=== PATIENT | female | born 1940 | race Caucasian/White ===

== ENCOUNTER 2018-01-18 16:48 | Inpatient (IN) | payer OTHER ==
[2018-01-18] VITALS (8 sets, daily range): BP systolic 110–203; BP diastolic 80–120
[~2018-01-18] VITALS: Ht 152.4 cm; Wt 99.8 kg
--- NOTE | ~2018-01-18 | 2DMMODE ---
[facility] [address] [email or web address] [address] 2 D/M-MODE ECHOCARDIOGRAM Name: AMBROSE NAVARRO Room #: 247-P ADM IN M.R.#: [id number] Admission: 01/18/18 Attend Phys: Jevon Wheat MD Discharge: Date of : 40 Date of Service: 01/19/18 1019 Report #: [id number] THIS REPORT FOR: //name// APPROVED REPORT Study performed: 01/19/2018 08:30:55 EXAM: Comprehensive 2D, Doppler, and color-flow Echocardiogram Patient Location: ICU Room #: [facility] Status: routine BSA: 1.94 HR: 89 bpm BP: 177/93 mmHg Rhythm: NSR/Arrhythmia Other Information Study Quality: Fair Technically limited study due to morbid obesity and little cooperation. Indications Hypertension. Hx: DM, HTN 2D Dimensions RVDd: 25.76 mm LVEF(%): 54.29 (>50%) IVSd: 10.10 (7-11mm) LVOT Diam: 21.60 (18-24mm) LVDd: 42.89 mm PWd: 10.69 (7-11mm) Ascending Ao: 30.26 (22-36mm) LVDs: 30.94 (25-40mm) Aortic Root: 27.07 mm Hill's LVEF: 54.29 % Volumes Left Atrial Volume (Systole) Single Plane 4CH: 61.14 mL Single Plane 2CH: 40.73 mL LA ESV Index: 29.00 mL/m2 Aortic Valve AoV Peak Justin.: 1.61 m/s AO Peak Gr.: 10.37 mmHg LVOT Max P.70 mmHg LVOT Max V: 1.19 m/s BALJINDER Vmax: 2.72 cm2 Mitral Valve [facility] [address] [place] [address] 2 D/M-MODE ECHOCARDIOGRAM Name: AMBROSE NAVARRO VERONICA Room #: 247-P [facility] IN M.R.#: [id number] Admission: 01/18/18 Attend Phys: Jevon Wheat MD Discharge: Date of : 40 Date of Service: 01/19/18 1019 Report #: [id number] E/A Ratio: 30.5 MV E Max Justin.: 0.61 m/s MV A Justin.: 0.02 m/s IVRT: 106.11 ms Pulmonary Valve PV Peak Justin.: 0.95 m/s PV Peak Gr.: 3.61 mmHg Pulmonary Vein P Vein S: 0.76 m/s P Vein D: 0.33 m/s P Vein S/D Ratio: 2.30 Tricuspid Valve RAP Estimate: 5.00 mmHg Left Ventricle The left ventricle is normal size. There is normal LV segmental wall motion. Mild basal septal hypertrophy is present. Left ventricular systolic function is normal. LVEF is 60%. Mild diastolic dysfunction is present (impaired relaxation pattern). Right Ventricle The right ventricle is normal size. The right ventricular systolic function is normal. Atria The left atrium size is normal. The right atrium size is normal. Aortic Valve The aortic valve is not well visualized but appears grossly normal. No aortic regurgitation is present. There is no aortic valvular stenosis. Mitral Valve Mild mitral annular calcification. There is no mitral valve regurgitation noted. Tricuspid Valve The tricuspid valve is normal in structure. There is no tricuspid valve regurgitation noted. Unable to assess PA pressure. Pulmonic Valve Pulmonic valve is not well visualized. [facility] [address] [place] [address] 2 D/M-MODE ECHOCARDIOGRAM Name: AMBROSE NAVARRO Room #: 247-P [facility] IN M.R.#: [id number] Admission: 01/18/18 Attend Phys: Jevon Wheat MD Discharge: Date of : 40 Date of Service: 01/19/18 1019 Report #: [id number] Great Vessels The aortic root is normal in size. The ascending aorta is normal in size. IVC is normal in size and collapses >50% with inspiration. Pericardium There is no pericardial effusion. <Conclusion> Left ventricular systolic function is normal. There is normal LV segmental wall motion. LVEF 60%. Mild diastolic dysfunction The aortic valve is not well visualized but appears grossly normal. No aortic regurgitation or stenosis Mild mitral annular calcification. No mitral insufficiency Pulmonary artery pressure could not be reliably ascertained There is no pericardial effusion. <ELECTRONICALLY SIGNED> By: Zohaib Aj MD, FACC 01/19/18 1019 1019 1019 Zohaib Aj MD, FAC /INF
--- NOTE | ~2018-01-18 | O ---
[facility] [place] [address] OPERATIVE REPORT Name: AMBROSE ANVARRO Room #: 455-P ADM IN M.R.#: [id number] Admission: 01/18/18 Attend Phys: Jevon Wheat MD Discharge: Date of : 40 Report #: [id number] THIS REPORT FOR: //name// CC: ADDY physician/PCP Jevon Wheat DATE OF SERVICE: 01/19/2018 SURGEON: Celestino Weber MD EQUAL OPPORTUNITY REPRESENTATIVE: PENNY Torres PREOPERATIVE DIAGNOSES: 1. Acute appendicitis. 2. Morbid obesity. 3. Diabetes mellitus. 4. Hypertension. 5. Chronic pain. POSTOPERATIVE DIAGNOSES: 1. Acute appendicitis. 2. Incarcerated incisional ventral hernias times 2. 3. Intraabdominal adhesions. 4. Morbid obesity. 5. Diabetes mellitus. 6. Hypertension. 7. Chronic pain. PROCEDURE: 1. Laparoscopic appendectomy. 2. Laparoscopic lysis of adhesions. 3. Laparoscopic repair of incarcerated incisional ventral hernias times 2. ANESTHESIA: General endotracheal anesthesia and local anesthetic. ESTIMATED BLOOD LOSS: 5 mL. SPECIMEN: Appendix. COMPLICATIONS: None appreciated. INDICATIONS FOR PROCEDURE: This is a 77-year-old female patient with history of diabetes mellitus, hypertension, chronic pain syndrome and fibromyalgia, who was directly admitted from [facility] with abdominal pain, nausea, and multiple episodes of emesis as well as diarrhea starting the day prior to her admission. She denies fever or chills. She had significant leukocytosis with a [facility] [address] [place] [address] OPERATIVE REPORT Name: AMBROSE NAVARRO Room #: 455-P ADM IN M.R.#: [id number] Admission: 01/18/18 Attend Phys: Jevon Wheat MD Discharge: Date of : 40 Report #: [id number] white blood cell count of 22.[address] evidence for acute appendicitis (dilated appendix with mucosal enhancement and periappendiceal stranding). The patient presents now for laparoscopic appendectomy. OPERATIVE FINDINGS: Upon entrance into the abdominal cavity, intra-abdominal adhesions were seen in the lower abdomen. She did have an incisional ventral hernia at the umbilicus that I traversed and this was closed primarily; however, an additional incisional ventral hernia was seen in the upper epigastrium associated with her previous laparoscopic cholecystectomy. Neither hernia was incarcerated with bowel, but rather omentum and preperitoneal fat. The appendix itself was inflamed and dilated with no evidence for abscess or perforation. The base of the appendix was able to be stapled off without difficulty and the staple line was secure thereafter. Upon running the bowel back, there was no evidence for a Meckel's diverticulum. At the conclusion of the operation, sponge, needle, and instrument counts were correct. DESCRIPTION OF PROCEDURE IN DETAIL: After the risks, benefits, and expectations of the operation were discussed in detail with the patient, informed consent was obtained. The patient was identified in the preoperative holding area. She has been given scheduled IV antibiotics. She was taken to the operating room and she was placed in the supine position. SCDs were placed on the patient's bilateral lower extremities and pneumatic compression was initiated. The patient was then given IV sedation and she was intubated without incident. A time-out was performed to identify the correct patient and procedure. Local anesthetic was infiltrated into the skin and subcutaneous tissue supraumbilically where a curvilinear incision was made with a #15 blade scalpel. Dissection was carried down and the incisional ventral hernia was identified. The 11-mm port was able to be placed easily through the defect. A pneumoperitoneum was achieved with insufflation of carbon dioxide to 15 mmHg. A 30-degree angled laparoscope was inserted. The left lower quadrant 5-mm port was placed under direct visualization after local anesthetic was infiltrated into the skin and subcutaneous tissue and appropriately sized incisions were made. An additional 5-mm port was placed in the lower midline using the same technique. The intraabdominal adhesions were then carefully taken down off of the abdominal wall with the ultrasonic dissector. The patient was rotated to her left with the right side up. The base of the appendix was able to be identified. A window was made in the mesoappendix adjacent to the base of the appendix. The blue load endoscopic AARON stapler was then used to staple and divide the appendix at its base. The mesoappendix was divided with the ultrasound dissector with good hemostasis. The appendix and mesoappendix were then placed in an Endopouch and removed through the supraumbilical port site. On survey of the abdominal cavity, an incisional ventral hernia incarcerated with omentum and preperitoneal fat was seen in the upper abdomen associated previous laparoscopic cholecystectomy. The defect was skeletonized. A separate small stab incision was made and an 0 PDS suture was used to close the fascial [facility] [address] [place] [address] OPERATIVE REPORT Name: AMBROSE NAVARRO Room #: 455-P [facility] IN Ren[place]#: [id number] Admission: 01/18/18 Attend Phys: Jevon Wheat MD Discharge: Date of : 40 Report #: [id number] defect. The suture was tied under direct visualization. A [id number] 0 PDS suture was also placed at the umbilicus where the port had been placed. The staple line was secure and no other pathology was seen upon running the bowel backwards. At the conclusion of the operation, sponge, needle, and instrument counts were correct. The sutures were tied under direct visualization to ensure no incorporation of intra-abdominal content. The abdominal cavity was desufflated and the remaining ports were removed. Interrupted subcuticular 4-0 Monocryl sutures and Dermabond were used to close the skin incisions. The patient tolerated the procedure well. She was awakened, extubated, and taken to recovery room in stable condition with no apparent intraoperative complications. <ELECTRONICALLY SIGNED> By: Celestino Weber MD, FACS 01/20/18 1146 [id number] Celestino Weber MD, FACS /nt
[2018-01-18 19:44] LABS: ALBUMIN 3.8 g/dL (3.4-5.0); DIRECT BILIRUBIN 0.1 mg/dL (<0.1-0.3); TOTAL BILIRUBIN 0.5 mg/dL (<0.1-1.0); TOTAL PROTEIN 8.4 g/dL (6.4-8.2)
[2018-01-18 22:07] LABS: URINE BILIRUBIN NEGATIVE (Negative); URINE BLOOD 1+ (Negative); URINE CLARITY CLEAR; URINE COLOR YELLOW; URINE GLUCOSE-RANDOM* 2+ (Negative); URINE KETONES 3+ (Negative); URINE LEUKOCYTES-REFLEX NEGATIVE (Negative); URINE NITRITE-REFLEX NEGATIVE (Negative); URINE PROTEIN (DIPSTICK) 2+ (Negative); URINE SPECIFIC GRAVITY 1.025 (1.005-1.035); URINE UROBILINOGEN 0.2 E.U./dl (0.2-1.0)
[2018-01-18 22:16] LABS: BACTERIA-REFLEX None Seen /HPF (None Seen); CASTS None Seen /LPF (None Seen); CRYSTALS None Seen /LPF (None Seen); MUCUS None Seen strn/LPF (None Seen); SQUAMOUS 0-3 Few /LPF (0-3); URINE RBC None Seen /HPF (0-2); URINE WBC-REFLEX None Seen /HPF (0-5)
[2018-01-19] VITALS (25 sets, daily range): BP systolic 110–213; BP diastolic 58–116
[2018-01-19 02:03] LABS: HEMATOCRIT 38.8 % (37.0-47.0); HEMOGLOBIN 13.3 gm/dL (12.0-15.0); MCH 28.8 pg (26.0-34.0); MCHC 34.2 g/dL (28.0-37.0); MCV 84.2 fL (80.0-100.0); RBC 4.6 mil/uL (4.20-5.00); RDW 13.1 % (10.5-14.5); WBC 22.2 thou/uL (4.0-11.0)
[2018-01-19 02:06] LABS: CALCIUM 9.3 mg/dL (8.5-10.1); CREATININE 0.8 mg/dL (0.6-1.0)
[2018-01-20] VITALS: BP 123/69
[2018-01-20 03:28] VITALS: BP 165/78
[2018-01-20 04:40] LABS: HEMATOCRIT 34.3 % (37.0-47.0); HEMOGLOBIN 11.4 gm/dL (12.0-15.0); MCH 28.5 pg (26.0-34.0); MCHC 33.2 g/dL (28.0-37.0); RBC 3.99 mil/uL (4.20-5.00); RDW 13.3 % (10.5-14.5); WBC 20.8 thou/uL (4.0-11.0)
[2018-01-20 04:42] LABS: PLATELET COUNT 386 thou/uL (150-400)
[2018-01-20 04:54] LABS: CALCIUM 7.5 mg/dL (8.5-10.1); CREATININE 0.9 mg/dL (0.6-1.0); MAGNESIUM 1.1 mg/dL (1.8-2.4); POTASSIUM 3.6 mmol/L (3.5-5.1)
[2018-01-20 05:45] LABS: ABSOLUTE NEUTROPHILS 17.7 thou/uL (1.4-8.2); LARGE PLATELETS RARE
[2018-01-20 07:35] VITALS: BP 178/89
[2018-01-20] MEDS ORDERED: LIPITOR 20 MG T20 M1 PO (14:41)
[2018-01-20] MEDS ORDERED: PROTONIX40 M1 PO (14:41)
[2018-01-20] MEDS ORDERED: AMITRIPTYLINE H25 M2 PO (14:41)
[2018-01-20] MEDS ORDERED: GLYBURIDE 2.52.5 MG PO (14:42)
[2018-01-20] MEDS ORDERED: CYMBALTA60 MG PO (14:42)
[2018-01-20] MEDS ORDERED: GABAPENTIN 100100 MG PO (14:42)
[2018-01-20] MEDS ORDERED: METFORMIN HCL500 MG PO (14:43)
[2018-01-20] MEDS ORDERED: AMBIEN 5 MG TABL5 M1 PO (14:44)
[2018-01-20] MEDS ORDERED: REQUIP0.5 MG PO (14:44)
[2018-01-20 16:00] VITALS: BP 117/60
[2018-01-20 20:20] VITALS: BP 147/84
[2018-01-21 08:24] VITALS: BP 160/73
[2018-01-21 20:47] VITALS: BP 156/87
[2018-01-22 07:25] VITALS: BP 155/82
[2018-01-22 07:36] LABS: BASOPHILS 1.2 % (0.0-2.0); EOSINOPHILS 3.6 % (0.0-3.0); HEMATOCRIT 30.4 % (37.0-47.0); HEMOGLOBIN 10.3 gm/dL (12.0-15.0); LYMPHOCYTES 17.4 % (24.0-44.0); MCH 29.1 pg (26.0-34.0); MCHC 33.9 g/dL (28.0-37.0); MONOCYTES 6.7 % (1.0-8.0); PLATELET COUNT 330 thou/uL (150-400); POLYS 71.1 % (36.0-66.0); RBC 3.53 mil/uL (4.20-5.00); RDW 13.6 % (10.5-14.5); WBC 14.1 thou/uL (4.0-11.0)
[2018-01-22 07:50] LABS: ALBUMIN 2.8 g/dL (3.4-5.0); CALCIUM 7.5 mg/dL (8.5-10.1); CREATININE 0.6 mg/dL (0.6-1.0); MAGNESIUM 1.2 mg/dL (1.8-2.4); POTASSIUM 3.5 mmol/L (3.5-5.1); TOTAL BILIRUBIN 0.4 mg/dL (<0.1-1.0); TOTAL PROTEIN 5.9 g/dL (6.4-8.2)
[2018-01-22 08:16] LABS: TSH 0.489 uIU/mL (0.358-3.740)
[2018-01-22 19:46] VITALS: BP 145/68
[2018-01-23 07:03] LABS: BASOPHILS 1.1 % (0.0-2.0); HEMATOCRIT 29.9 % (37.0-47.0); HEMOGLOBIN 10.4 gm/dL (12.0-15.0); LYMPHOCYTES 17.5 % (24.0-44.0); MCH 29.1 pg (26.0-34.0); MCHC 34.9 g/dL (28.0-37.0); MCV 83.3 fL (80.0-100.0); PLATELET COUNT 327 thou/uL (150-400); POLYS 70.4 % (36.0-66.0); RBC 3.59 mil/uL (4.20-5.00); RDW 13.4 % (10.5-14.5); WBC 17.1 thou/uL (4.0-11.0)
[2018-01-23 07:14] LABS: CALCIUM 8.2 mg/dL (8.5-10.1); CREATININE 0.6 mg/dL (0.6-1.0); POTASSIUM 3.5 mmol/L (3.5-5.1)
[2018-01-23 07:20] VITALS: BP 150/92
[2018-01-23 20:54] VITALS: BP 195/85
[2018-01-24 08:20] VITALS: BP 177/82
[2018-01-24 08:43] LABS: HEMATOCRIT 30.1 % (37.0-47.0); HEMOGLOBIN 10.5 gm/dL (12.0-15.0); MCH 29.3 pg (26.0-34.0); MCHC 34.8 g/dL (28.0-37.0); MCV 84.1 fL (80.0-100.0); RBC 3.57 mil/uL (4.20-5.00); RDW 13.4 % (10.5-14.5)
[2018-01-24 08:49] LABS: CALCIUM 8.4 mg/dL (8.5-10.1); CREATININE 0.6 mg/dL (0.6-1.0); POTASSIUM 3.5 mmol/L (3.5-5.1)
[2018-01-24 20:00] VITALS: BP 151/82
[2018-01-25 07:15] VITALS: BP 148/65
[2018-01-25 10:52] LABS: ABSOLUTE NEUTROPHILS 9.5 thou/uL (1.4-8.2); BASOPHILS 1.4 % (0.0-2.0); EOSINOPHILS 5.3 % (0.0-3.0); HEMATOCRIT 32.6 % (37.0-47.0); HEMOGLOBIN 11.2 gm/dL (12.0-15.0); LYMPHOCYTES 22.2 % (24.0-44.0); MCH 29.1 pg (26.0-34.0); MCHC 34.3 g/dL (28.0-37.0); MONOCYTES 5.4 % (1.0-8.0); PLATELET COUNT 387 thou/uL (150-400); POLYS 65.7 % (36.0-66.0); RBC 3.83 mil/uL (4.20-5.00); RDW 13.4 % (10.5-14.5); WBC 14.5 thou/uL (4.0-11.0)
[2018-01-25 11:06] LABS: CALCIUM 8.5 mg/dL (8.5-10.1); CREATININE 0.8 mg/dL (0.6-1.0); POTASSIUM 3.4 mmol/L (3.5-5.1); TOTAL BILIRUBIN 0.3 mg/dL (<0.1-1.0); TOTAL PROTEIN 6.9 g/dL (6.4-8.2)
[2018-01-25 20:00] VITALS: BP 139/74
[2018-01-26 06:59] LABS: BASOPHILS 0.8 % (0.0-2.0); EOSINOPHILS 5.6 % (0.0-3.0); HEMATOCRIT 30.8 % (37.0-47.0); HEMOGLOBIN 10.7 gm/dL (12.0-15.0); LYMPHOCYTES 21.5 % (24.0-44.0); MCH 29.1 pg (26.0-34.0); MCHC 34.7 g/dL (28.0-37.0); MCV 83.8 fL (80.0-100.0); MONOCYTES 7.6 % (1.0-8.0); PLATELET COUNT 399 thou/uL (150-400); POLYS 64.5 % (36.0-66.0); RBC 3.67 mil/uL (4.20-5.00); RDW 13.4 % (10.5-14.5)
[2018-01-26 07:22] LABS: ALBUMIN 2.9 g/dL (3.4-5.0); CALCIUM 8.4 mg/dL (8.5-10.1); CREATININE 0.6 mg/dL (0.6-1.0); POTASSIUM 3.3 mmol/L (3.5-5.1); TOTAL BILIRUBIN 0.3 mg/dL (<0.1-1.0); TOTAL PROTEIN 6.6 g/dL (6.4-8.2)
[2018-01-26 08:25] VITALS: BP 160/76
[2018-01-26 20:06] VITALS: BP 150/81
[2018-01-27 07:00] LABS: BASOPHILS 1.7 % (0.0-2.0); EOSINOPHILS 4.2 % (0.0-3.0); HEMATOCRIT 31.2 % (37.0-47.0); HEMOGLOBIN 10.8 gm/dL (12.0-15.0); LYMPHOCYTES 20.2 % (24.0-44.0); MCH 29.1 pg (26.0-34.0); MCHC 34.6 g/dL (28.0-37.0); MCV 84.1 fL (80.0-100.0); MONOCYTES 7.5 % (1.0-8.0); PLATELET COUNT 417 thou/uL (150-400); POLYS 66.4 % (36.0-66.0); RBC 3.71 mil/uL (4.20-5.00); RDW 13.6 % (10.5-14.5); WBC 13.5 thou/uL (4.0-11.0)
[2018-01-27 07:12] LABS: CALCIUM 8.7 mg/dL (8.5-10.1); CREATININE 0.7 mg/dL (0.6-1.0); MAGNESIUM 1.6 mg/dL (1.8-2.4); POTASSIUM 4.1 mmol/L (3.5-5.1)
[2018-01-27 08:35] VITALS: BP 169/76
[2018-01-27 17:12] LABS: URINE BILIRUBIN NEGATIVE (Negative); URINE BLOOD NEGATIVE (Negative); URINE CLARITY CLEAR; URINE COLOR YELLOW; URINE GLUCOSE-RANDOM* NEGATIVE (Negative); URINE KETONES NEGATIVE (Negative); URINE LEUKOCYTES-REFLEX NEGATIVE (Negative); URINE NITRITE-REFLEX NEGATIVE (Negative); URINE PROTEIN (DIPSTICK) NEGATIVE (Negative); URINE UROBILINOGEN 0.2 E.U./dl (0.2-1.0)
[2018-01-27 19:56] VITALS: BP 155/94
[2018-01-28 07:25] VITALS: BP 161/96
[2018-01-28 07:29] LABS: ABSOLUTE NEUTROPHILS 6.7 thou/uL (1.4-8.2); BASOPHILS 1.1 % (0.0-2.0); HEMATOCRIT 31.4 % (37.0-47.0); LYMPHOCYTES 26.3 % (24.0-44.0); MCH 29.2 pg (26.0-34.0); MCHC 35.1 g/dL (28.0-37.0); MCV 83.3 fL (80.0-100.0); MONOCYTES 8.5 % (1.0-8.0); PLATELET COUNT 432 thou/uL (150-400); POLYS 59.1 % (36.0-66.0); RBC 3.76 mil/uL (4.20-5.00); RDW 13.3 % (10.5-14.5); WBC 11.4 thou/uL (4.0-11.0)
[2018-01-28] MEDS ORDERED: AUGMENTIN 500-1 EACH PO (11:54)
[2018-01-28] MEDS ORDERED: ANUSOL-HC25 MG RECTAL (11:58)
[2018-01-28] MEDS ORDERED: LISINOPRIL10 MG PO (11:58)
[2018-01-28 12:49] VITALS: BP 161/96
== END 2018-01-28 15:19 | disposition home or self-care (01) | DRG 853 ==
LOC: 2N 16:48 → ICU 19:17 → 4W 19:17 → ICU 19:18 → 4W 01-19 11:23 → SICU 01-20 18:42
PROVIDERS: Hospitalist; Internal Medicine; Internal Medicine Geriatric Medicine; Nurse Practitioner; Nurse Practitioner Family
DX: A41.9 Sepsis, unspecified organism (principal); K35.3 Acute appendicitis with localized peritonitis; K43.0 Incisional hernia with obstruction, without gangrene; Z68.41 Body mass index [BMI] 40.0-44.9, adult; E87.2 Acidosis; G25.81 Restless legs syndrome; E87.6 Hypokalemia; E66.01 Morbid (severe) obesity due to excess calories; I10 Essential (primary) hypertension; G89.4 Chronic pain syndrome; M79.7 Fibromyalgia; M19.90 Unspecified osteoarthritis, unspecified site; M06.9 Rheumatoid arthritis, unspecified; G30.9 Alzheimer's disease, unspecified; E11.40 Type 2 diabetes mellitus with diabetic neuropathy, unspecified; F02.80 Dementia in other diseases classified elsewhere, unspecified severity, without behavioral disturbance, psychotic disturbance, mood disturbance, and anxiety; Z96.653 Presence of artificial knee joint, bilateral; Z90.49 Acquired absence of other specified parts of digestive tract; Z79.899 Other long term (current) drug therapy; Z90.710 Acquired absence of both cervix and uterus; Z88.8 Allergy status to other drugs, medicaments and biological substances
CPT/HCPCS: 10047; 10078; 15002; 27001; 50010; 50101; 50249; 50411; 50555; 50558; 50739; 50740; 50962; 51975; 52265; 53307; 54022; 54118; 56526; 56527; 62110; 62900; 70005